=== PATIENT | male | born 1960 | race African-American/Black ===

== ENCOUNTER 2016-10-28 13:21 | Emergency (ER) | payer MEDICARE, OTHER ==
[~2016-10-28] VITALS: Wt 92.0 kg
[~2016-10-28 13:21] MED LIST: CYCL-319 PO
== END 2016-10-28 16:20 | disposition left against medical advice (07) ==
LOC: FTE 13:21
DX: Z53.21 Procedure and treatment not carried out due to patient leaving prior to being seen by health care provider (principal)

== ENCOUNTER 2017-11-29 13:41 | Emergency (ER) | END 2017-11-29 17:44 | disposition home or self-care (01) ==